=== PATIENT | female | born 1945 | race Caucasian/White ===

== ENCOUNTER 2016-12-31 21:02 | Inpatient (IN) | payer MEDICARE, OTHER ==
[~2016-12-31] VITALS: Ht 172.7 cm; Wt 65.0 kg
[2016-12-31] MEDS ORDERED: NITR50CA PO (21:15)
[2016-12-31] MEDS ORDERED: DIVA500T7 PO (21:15)
[2016-12-31] MEDS ORDERED: RISP3TAB5 PO (21:15)
[2016-12-31] MEDS ORDERED: MELA1TAB25 PO (21:15)
[2016-12-31] MEDS ORDERED: TRIH2TAB3 PO (21:15)
[2016-12-31 21:34] LABS: BASOPHILS # (AUTO) 0.1 K/uL (0.0-8.0); BASOPHILS % (AUTO) 1.2 % (0.0-2.0); EOSINOPHILS # (AUTO) 0.2 K/uL (0.0-0.7); HEMATOCRIT 41.2 % (37-47); HEMOGLOBIN 13.3 G/DL (12.0-16.0); LYMPHOCYTES # (AUTO) 1.7 K/UL (0.8-4.8); LYMPHOCYTES % (AUTO) 32.9 % (20.5-51.5); MEAN CORPUSCULAR HEMOGLOBIN 28.6 UUG (27.0-31.0); MEAN CORPUSCULAR HGB CONC 32 g/dL (32.0-37.0); MEAN CORPUSCULAR VOLUME 88.7 FL (81.0-99.0); MONOCYTES # (AUTO) 0.6 K/UL (0.1-1.30); MONOCYTES % (AUTO) 11.5 % (0.0-11.0); NEUTROPHILS # (AUTO) 2.5 K/UL (1.8-8.9); NEUTROPHILS % (AUTO) 50.4 % (38.5-71.5); PLATELET COUNT (AUTO) 239 K/UL (150-450); RED BLOOD CELL COUNT(AUTO) 4.65 MIL/UL (4.2-5.4); WHITE BLOOD COUNT (AUTO) 5.1 K/UL (4.0-11.2)
[2016-12-31 21:43] LABS: *BILIRUBIN,URIN NEGATIVE (NEGATIVE); *BLOOD, URINE NEGATIVE (NEGATIVE); *CLARITY,URINE CLEAR (CLEAR); *COLOR,URINE YELLOW (YELLOW); *KETONES,URINE NEGATIVE (NEGATIVE); *PROTEIN,URINE NEGATIVE (NEGATIVE); *UROBILINOGEN,URINE 0.2 E.U./dl (NORMAL); LEUKOCYTE ESTERASE ,URINE 1+ (NEGATIVE); NITRITE, URINE NEGATIVE (NEGATIVE); UGLUCOSE NEGATIVE (NEGATIVE)
[2016-12-31 21:49] LABS: RBC,URINE 0-3 /HPF (0-3); SQUAMOUS EPITHELIAL CELL,UR FEW /HPF (NONE SEEN)
[2016-12-31 21:52] LABS: BILIRUBIN,DIRECT 0.1 mg/dL (0.0-0.2); BILIRUBIN,TOTAL 0.2 mg/dL (0.2-1.0); CREATININE 0.6 mg/dL (0.6-1.3); POTASSIUM 4.4 mmol/L (3.5-5.1); TOTAL PROTEIN, SERUM 6.6 g/dL (6.4-8.2)
[2016-12-31] MEDS ORDERED: BENZTROPINE MESYLATE 2 MG/2 ML AMPUL IM ONE (23:15)
[2016-12-31] MEDS ORDERED: BENZTROPINE MESYLATE 2 MG/2 ML AMPUL ONE (23:26)
[2017-01-01 00:10] VITALS: BP 135/64
[2017-01-01] MEDS ORDERED: ACETAMINOPHEN 325 MG TABLET PO PRN (01:00)
[2017-01-01] MEDS ORDERED: ONDANSETRON HCL 4 MG/5 ML UDC ORAL SOL GT PRN (01:00)
[2017-01-01] MEDS ORDERED: ALBUTEROL SULFATE 2.5 MG/3 ML NEBU NEB PRN (01:00)
[2017-01-01] MEDS: IV 1/2NS 1000 ML 1,000 ML IV SCH ×2 (02:20→14:42)
[2017-01-01 06:18] VITALS: BP 126/61
[2017-01-01 07:18] LABS: ALANINE AMINOTRANSFERASE 15 U/L (14-59); ALKALINE PHOSPHATASE 66 U/L (50-136); ASPARTATE AMINOTRANSFERASE 15 U/L (15-37); BILIRUBIN,TOTAL 0.2 mg/dL (0.2-1.0); CARBON DIOXIDE 30 mmol/L (21-32); CHLORIDE 102 mmol/L (98-107); CREATININE 0.4 mg/dL (0.6-1.3); GLUCOSE 78 mg/dL (74-106); MAGNESIUM 1.8 mg/dL (1.8-2.4); POTASSIUM 4.7 mmol/L (3.5-5.1); TOTAL PROTEIN, SERUM 6.2 g/dL (6.4-8.2); UREA NITROGEN, BLOOD 11 mg/dL (7-18)
[2017-01-01 07:50] LABS: BASOPHILS % (AUTO) 0.4 % (0.0-2.0); EOSINOPHILS # (AUTO) 0.2 K/uL (0.0-0.7); EOSINOPHILS % (AUTO) 4.3 % (0.0-7.0); HEMATOCRIT 40.8 % (37-47); HEMOGLOBIN 13.6 G/DL (12.0-16.0); LYMPHOCYTES # (AUTO) 1.5 K/UL (0.8-4.8); LYMPHOCYTES % (AUTO) 29.9 % (20.5-51.5); MEAN CORPUSCULAR HEMOGLOBIN 29.6 UUG (27.0-31.0); MEAN CORPUSCULAR HGB CONC 33 g/dL (32.0-37.0); MONOCYTES # (AUTO) 0.7 K/UL (0.1-1.30); MONOCYTES % (AUTO) 13.6 % (0.0-11.0); NEUTROPHILS # (AUTO) 2.7 K/UL (1.8-8.9); NEUTROPHILS % (AUTO) 51.8 % (38.5-71.5); PLATELET COUNT (AUTO) 205 K/UL (150-450); RED BLOOD CELL COUNT(AUTO) 4.58 MIL/UL (4.2-5.4); WHITE BLOOD COUNT (AUTO) 5.1 K/UL (4.0-11.2)
[2017-01-01] MEDS ORDERED: ONDANSETRON HCL 4 MG TABLET PO PRN (08:45)
[2017-01-01] MEDS ORDERED: PANTOPRAZOLE SODIUM 40 MG VIAL IV SCH (09:00)
[2017-01-01 10:47] LABS: THYROID STIMULATING HORMONE 0.012 mIU/mL (0.358-3.740)
[2017-01-01 11:30] VITALS: BP 116/52
[2017-01-01] MEDS: CEFTRIAXONE 1 G in IV DEXTROSE 5% 50 ML IV SCH (11:31)
[2017-01-01 11:36] VITALS: BP 116/116
[2017-01-01 15:53] VITALS: BP 121/85
[2017-01-01] MEDS: TRIHEXYPHENIDYL HCL 2 MG TABLET PO SCH (16:53)
[2017-01-01] MEDS: DIVALPROEX 500 MG TABLET.DR PO SCH (16:53)
[2017-01-01 20:00] VITALS: BP 131/65
[2017-01-02] MEDS: IV 1/2NS 1000 ML 1,000 ML IV SCH ×2 (03:40→18:29)
[2017-01-02 04:00] VITALS: BP 100/59
[2017-01-02 06:57] LABS: THYROID STIMULATING HORMONE 0.014 mIU/mL (0.358-3.740)
[2017-01-02 07:00] LABS: HEMOGLOBIN 13.5 G/DL (12.0-16.0); MEAN CORPUSCULAR HEMOGLOBIN 28.9 UUG (27.0-31.0); MEAN CORPUSCULAR HGB CONC 33 g/dL (32.0-37.0); MEAN CORPUSCULAR VOLUME 87.9 FL (81.0-99.0); PLATELET COUNT (AUTO) 244 K/UL (150-450); RED BLOOD CELL COUNT(AUTO) 4.66 MIL/UL (4.2-5.4)
[2017-01-02 07:01] LABS: BILIRUBIN,TOTAL 0.3 mg/dL (0.2-1.0); CREATININE 0.5 mg/dL (0.6-1.3); MAGNESIUM 1.7 mg/dL (1.8-2.4); TOTAL PROTEIN, SERUM 6.2 g/dL (6.4-8.2)
[2017-01-02 07:12] LABS: WHITE BLOOD COUNT (AUTO) 5.7 K/uL (3.8-11.8)
[2017-01-02 07:14] LABS: BASOPHILS % (AUTO) 0.6 % (0.0-2.0); EOSINOPHILS # (AUTO) 0.3 K/uL (0.0-0.7); LYMPHOCYTES # (AUTO) 1.9 K/uL (20.0-40.0); LYMPHOCYTES % (AUTO) 33.9 % (20.5-51.5); MONOCYTES # (AUTO) 0.9 K/uL (2.0-10.0); MONOCYTES % (AUTO) 15.5 % (0.0-11.0); NEUTROPHILS # (AUTO) 2.6 K/uL (1.8-8.9)
[2017-01-02 07:42] LABS: BAND % (MANUAL) 2 % (0-10); EOSINOPHILS % (MANUAL) 5 % (0-8); LYMPHOCYTES % (MANUAL) 34 % (20-40); MONOCYTES % (MANUAL) 17 % (2-10); NEUTROPHILS % (MANUAL) 42 % (42-75)
[2017-01-02] MEDS: risperiDONE 1 MG TABLET PO SCH (08:23)
[2017-01-02] MEDS: TRIHEXYPHENIDYL HCL 2 MG TABLET PO SCH ×2 (08:23→17:14)
[2017-01-02] MEDS: DIVALPROEX 500 MG TABLET.DR PO SCH ×2 (08:23→17:14)
[2017-01-02 12:07] VITALS: BP 113/88
[2017-01-02] MEDS: LORAZEPAM 2 MG/1 ML VIAL IV PRN (12:46)
[2017-01-02] MEDS: CEFTRIAXONE 1 G in IV DEXTROSE 5% 50 ML IV SCH (12:46)
[2017-01-02 16:03] VITALS: BP 116/83
[2017-01-02] MEDS: MAGNESIUM SULFATE/D5W 100 ML IV SCH ×2 (17:14→18:23)
[2017-01-02 20:00] VITALS: BP 111/48
[2017-01-03 05:05] VITALS: BP 129/68
[2017-01-03] MEDS: IV 1/2NS 1000 ML 1,000 ML IV SCH (06:41)
[2017-01-03] MEDS ORDERED: PANTOPRAZOLE SODIUM 40 MG TABLET.DR PO SCH (07:00)
[2017-01-03 07:10] LABS: CREATININE 0.6 mg/dL (0.6-1.3); MAGNESIUM 2.1 mg/dL (1.8-2.4); POTASSIUM 4.4 mmol/L (3.5-5.1)
[2017-01-03] MEDS: risperiDONE 1 MG TABLET PO SCH (08:18)
[2017-01-03] MEDS: TRIHEXYPHENIDYL HCL 2 MG TABLET PO SCH ×2 (08:19→17:02)
[2017-01-03] MEDS: DIVALPROEX 500 MG TABLET.DR PO SCH ×2 (08:19→17:02)
[2017-01-03] MEDS: LORAZEPAM 2 MG/1 ML VIAL IV PRN (09:10)
[2017-01-03] MEDS: CEFTRIAXONE 1 G in IV DEXTROSE 5% 50 ML IV SCH (11:13)
[2017-01-03 11:15] VITALS: BP 109/55
[2017-01-03] MEDS ORDERED: MULT-1045 PO (12:44)
[2017-01-03] MEDS ORDERED: RISP1TAB7 PO (12:44)
[2017-01-03 15:26] VITALS: BP 123/60
== END 2017-01-03 17:15 | DRG 689 ==
LOC: ER 21:03 → MED 22:30
PROVIDERS: ADMIT Internal Medicine; ATTEND Internal Medicine
DX: N39.0 Urinary tract infection, site not specified (principal); G93.40 Encephalopathy, unspecified; E87.1 Hypo-osmolality and hyponatremia; E88.09 Other disorders of plasma-protein metabolism, not elsewhere classified; F03.91 Unspecified dementia, unspecified severity, with behavioral disturbance; G24.01 Drug induced subacute dyskinesia; F20.9 Schizophrenia, unspecified; T43.595A Adverse effect of other antipsychotics and neuroleptics, initial encounter; Y92.099 Unspecified place in other non-institutional residence as the place of occurrence of the external cause; Z96.612 Presence of left artificial shoulder joint; Z91.5 Personal history of self-harm; R26.81 Unsteadiness on feet; R62.7 Adult failure to thrive; M19.90 Unspecified osteoarthritis, unspecified site; E05.90 Thyrotoxicosis, unspecified without thyrotoxic crisis or storm; G40.909 Epilepsy, unspecified, not intractable, without status epilepticus; Z79.899 Other long term (current) drug therapy; I70.0 Atherosclerosis of aorta
CPT/HCPCS: 36415; 70450; 71010; 80164; 83690; 83735; 84100; 84443; 84481; 85025; 87086; 93005; A4663; C9113; J0515; J0696; J2060; J3475; J3490; J7060